=== PATIENT | male | born 1965 | race Caucasian/White ===

== ENCOUNTER 2020-09-18 07:34 | Emergency (ER) | payer SELFPAY ==
[2020-09-18 08:49] LABS: #Basophils 0.1 thou/uL (0.0-0.2); #Eosinphils 0.2 thou/uL (0.0-0.7); #Lymphocytes 1.1 thou/uL (1.20-3.40); #Monocytes 0.6 thou/uL (0.11-0.59); #Neutrophils 8.6 thou/uL (1.40-6.50); %Eosinophils 1.6 % (0.0-10.0); %Lymphocytes 10.3 % (21.0-51.0); %Monocytes 5.8 % (0.0-10.0); %Neutrophils 81.3 % (42.0-75.0); Bilirubin Negative (Negative); Blood, Urine Moderate (Negative); Clarity Hazy (Clear); Glucose, Urine (Dipstick) Negative (Negative); Hemoglobin 14.5 g/dL (14.0-18.0); Ketone, Urine 15 mg/dL (Negative); Leukocyte Negative (Negative); Mean Corpuscular HGB CONC 32.7 g/dL (32.0-36.0); Mean Corpuscular Hemoglobin 30.1 pg (27.0-31.0); Mean Corpuscular Volume 92.2 fL (78.0-98.0); Mean Platelet Volume 7.5 fL (7.4-10.4); Nitrite Negative (Negative); Platelet Count 280 thou/uL (130-400); Protein, Urine (Dipstick) Negative (Neg-Trace); RBC Distribution Width 12.6 % (11.5-14.5); Red Blood Cell (RBC) Count 4.81 mill/uL (4.70-6.10); Specific Gravity, Urine 1.024 (1.002-1.036); Urobilinogen 0.2 mg/dL (Less than 2); White Blood Cell (WBC) Count 10.6 thou/uL (4.8-10.8)
[2020-09-18 08:50] LABS: RBC/HPF 21-50 HPF (0-3); WBC/HPF 0-3 HPF (0-3)
[2020-09-18 08:51] LABS: Bacteria/HPF 2+ HPF (None Seen)
[2020-09-18 09:04] LABS: ALT (SGPT) 25 U/L (8-55); AST (SGOT) 23 U/L (5-34); Albumin 4.1 g/dL (3.5-5.0); Alkaline Phosphatase 91 U/L (40-110); Anion Gap 15 mmol/L (10-20); BUN (Urea Nitrogen) 15 mg/dL (8.4-25.7); Bilirubin, Total 0.6 mg/dL (0.2-1.2); Calc. Creatinine Clearance 0 mL/min (70-130); Calcium 8.9 mg/dL (7.8-10.44); Carbon Dioxide 24 mmol/L (22-29); Chloride 108 mmol/L (98-107); Globulin 2.6 g/dL (2.4-3.5); Glucose 179 mg/dL (70-105); Lipase 25 U/L (8-78); Potassium 3.8 mmol/L (3.5-5.1); Protein, Total 6.7 g/dL (6.0-8.3); Sodium 143 mmol/L (136-145)
== END 2020-09-18 10:02 | disposition home or self-care (01) ==
LOC: MADERS 07:34
DX: R10.32 Left lower quadrant pain (principal); R31.9 Hematuria, unspecified; R11.0 Nausea
CPT/HCPCS: 74176; 80053; 81003; 81015; 83690; 85025